=== PATIENT | female | born 1945 | race Caucasian/White ===

== ENCOUNTER → 2020-09-24 13:53 | Outpatient (BNVA) | payer MEDICARE, SELFPAY | PROVIDERS: PCP Internal Medicine; Referring Provider Internal Medicine; Visit Provider Internal Medicine Endocrinology, Diabetes & Metabolism | DX: Z13.89 Encounter for screening for other disorder (principal) | CPT/HCPCS: 99212 ==

== ENCOUNTER 2021-01-03 14:57 | Outpatient (REF) | payer MEDICARE, SELFPAY ==
[2021-01-03 16:23] LABS: MANUAL DIFF FLAG NO
[2021-01-03 16:31] LABS: Basophils Percent Auto 0.4 % (0-2); Eosinophils Absolute Auto 0.2 X10*3/uL (0.0-0.4); Hematocrit 36.2 % (37-47); Hemoglobin 11.6 g/dl (12.0-16.0); Imm Gran Abs Auto 0.04 X10*3/uL (0.00-0.03); Imm Gran Pct Auto 0.6 % (0.0-0.4); Lymphocytes Absolute Auto 1.7 X10*3/uL (1.2-4.9); Lymphocytes Percent Auto 23.3 % (20-40); Mean Corpuscular Hemoglobin 29.9 pg (27.0-33.0); Mean Corpuscular Volume 93.3 fL (80-98); Mean Platelet Volume 10.4 fL (9.4-12.3); Monocytes Absolute Auto 0.6 X10*3/uL (0.1-1.2); Neutrophils Absolute Auto 4.6 X10*3/uL (2.0-8.3); Neutrophils Percent Auto 64.7 % (45-73); Platelet Count 250 X10*3/uL (160-400); Red Blood Count 3.88 X10*6/uL (4.20-5.50); Red Cell Distribution Width 13.9 % (11.0-16.0); White Blood Count 7.1 X10*3/uL (4.8-10.8)
[2021-01-03 16:48] LABS: Anion Gap 12 (12-20); Blood Urea Nitrogen 67 mg/dL (9-16); Calcium 8.9 mg/dL (8.4-10.2); Carbon Dioxide 34 mmol/L (22-29); Chloride 93 mmol/L (96-108); Estimated Glomerular Filt Rate 23; Glucose Random 180 mg/dL (60-115); Potassium 5.1 mmol/L (3.3-5.1); Sodium 134 mmol/L (135-145)
[2021-01-03 17:01] LABS: Erythrocyte Sedimentation Rate 78 MM/HR (0-20)
[2021-01-04 21:18] LABS: Immunoglobulin G Subclass 1 630 mg/dL (382-929); Immunoglobulin G Subclass 2 664 mg/dL (241-700); Immunoglobulin G Subclass 3 >220 mg/dL (22-178); Immunoglobulin G Subclass 4 80.6 mg/dL (4-86); Immunoglobulin G Total 1537 mg/dL (600-1540)
[2021-01-05 07:50] LABS: SARS COV2 IgG Negative (Negative)
== END 2021-01-03 14:58 | disposition home or self-care (01) ==
LOC: HO.LAB 14:57
PROVIDERS: Absent Provider Internal Medicine Endocrinology, Diabetes & Metabolism; Visit Provider Hospitalist
DX: J44.0 Chronic obstructive pulmonary disease with (acute) lower respiratory infection (principal); J22 Unspecified acute lower respiratory infection; Z01.84 Encounter for antibody response examination
CPT/HCPCS: 36415; 80048; 82784; 85025; 85652; 86769; 99212

== ENCOUNTER 2021-01-09 11:19 | Outpatient (REF) | payer MEDICARE, SELFPAY ==
[2021-01-09 13:03] LABS: Hematocrit 38.6 % (37-47); Hemoglobin 12.5 g/dl (12.0-16.0); Mean Corpuscular HGB Conc 32.4 g/dl (31.0-35.0); Mean Corpuscular Volume 92.6 fL (80-98); Mean Platelet Volume 10.5 fL (9.4-12.3); Platelet Count 327 X10*3/uL (160-400); Red Blood Count 4.17 X10*6/uL (4.20-5.50); Red Cell Distribution Width 13.9 % (11.0-16.0); White Blood Count 10.6 X10*3/uL (4.8-10.8)
[2021-01-09 13:11] LABS: Estimated Average Glucose 177 mg/dL; Hemoglobin A1c % 7.8 %
[2021-01-09 14:10] LABS: Alanine Aminotransferase 14 U/L (0-31); Alkaline Phosphatase 73 U/L (39-117); Anion Gap 17 (12-20); Aspartate Amino Transferase 12 U/L (5-31); Bilirubin Total 0.4 mg/dL (0.0-1.0); Blood Urea Nitrogen 90 mg/dL (9-16); Calcium 9.2 mg/dL (8.4-10.2); Carbon Dioxide 31 mmol/L (22-29); Chloride 92 mmol/L (96-108); Cholesterol 207 mg/dL; Estimated Glomerular Filt Rate 26; Glucose Fasting 131 mg/dL (60-99); HDL Cholesterol 63 mg/dL; LDL Cholesterol Calculated 109 mg/dl; Potassium 4.5 mmol/L (3.3-5.1); Sodium 135 mmol/L (135-145); Total Protein 7.8 g/dL (6.5-8.0); Triglycerides 175 mg/dL
[2021-01-10 05:52] LABS: LDL Cholesterol Direct 110 mg/dL (<100)
[2021-01-10 17:30] LABS: Vitamin B12 322 pg/mL (200-900)
== END 2021-01-09 11:20 | disposition home or self-care (01) ==
LOC: HO.LAB 11:19
PROVIDERS: PCP Internal Medicine Geriatric Medicine; Visit Provider Internal Medicine Endocrinology, Diabetes & Metabolism
DX: E11.65 Type 2 diabetes mellitus with hyperglycemia (principal); E11.21 Type 2 diabetes mellitus with diabetic nephropathy; E11.40 Type 2 diabetes mellitus with diabetic neuropathy, unspecified; I10 Essential (primary) hypertension; E78.5 Hyperlipidemia, unspecified; E66.01 Morbid (severe) obesity due to excess calories; I50.9 Heart failure, unspecified; E55.9 Vitamin D deficiency, unspecified; Z88.5 Allergy status to narcotic agent; Z88.0 Allergy status to penicillin; Z88.8 Allergy status to other drugs, medicaments and biological substances; Z79.82 Long term (current) use of aspirin; Z79.84 Long term (current) use of oral hypoglycemic drugs; Z79.899 Other long term (current) drug therapy; Z79.52 Long term (current) use of systemic steroids
CPT/HCPCS: 36415; 80053; 80061; 82607; 82947; 83036; 83721; 85027; 99212

== ENCOUNTER → 2021-02-19 15:23 | Outpatient (BNVA) | payer MEDICARE, SELFPAY | PROVIDERS: PCP Internal Medicine Geriatric Medicine; Visit Provider Hospitalist | DX: J44.0 Chronic obstructive pulmonary disease with (acute) lower respiratory infection (principal); M54.9 Dorsalgia, unspecified; G47.33 Obstructive sleep apnea (adult) (pediatric); I50.9 Heart failure, unspecified; L89.156 Pressure-induced deep tissue damage of sacral region; Z99.89 Dependence on other enabling machines and devices | CPT/HCPCS: 99212 ==

== ENCOUNTER 2021-03-12 12:45 | Outpatient (RCR) | payer MEDICARE, SELFPAY | END 2021-07-31 15:45 | disposition home or self-care (01) | LOC: HO.WCC 12:45 | PROVIDERS: PCP Internal Medicine Geriatric Medicine; Visit Provider Physician Assistant | DX: E11.622 Type 2 diabetes mellitus with other skin ulcer (principal); L89.153 Pressure ulcer of sacral region, stage 3; E11.65 Type 2 diabetes mellitus with hyperglycemia; E66.9 Obesity, unspecified; Z79.4 Long term (current) use of insulin; Z79.82 Long term (current) use of aspirin; Z79.899 Other long term (current) drug therapy | CPT/HCPCS: 11042; 99212 ==

== ENCOUNTER → 2021-08-13 13:50 | Outpatient (BNVA) | payer MEDICARE, SELFPAY | PROVIDERS: Visit Provider Hospitalist | DX: J44.0 Chronic obstructive pulmonary disease with (acute) lower respiratory infection (principal); I50.9 Heart failure, unspecified; G47.33 Obstructive sleep apnea (adult) (pediatric); L89.156 Pressure-induced deep tissue damage of sacral region; Z99.89 Dependence on other enabling machines and devices | CPT/HCPCS: 99212 ==

== ENCOUNTER → 2021-11-21 14:14 | Outpatient (BNVA) | payer MEDICARE, SELFPAY | PROVIDERS: PCP Internal Medicine Geriatric Medicine; Visit Provider Hospitalist | DX: J44.0 Chronic obstructive pulmonary disease with (acute) lower respiratory infection (principal); G47.33 Obstructive sleep apnea (adult) (pediatric); I50.9 Heart failure, unspecified; Z99.89 Dependence on other enabling machines and devices | CPT/HCPCS: 99212 ==

== ENCOUNTER → 2022-01-23 14:58 | Outpatient (BNVA) | payer MEDICARE, SELFPAY | PROVIDERS: PCP Internal Medicine Geriatric Medicine; Visit Provider Internal Medicine Endocrinology, Diabetes & Metabolism | DX: E11.65 Type 2 diabetes mellitus with hyperglycemia (principal) | CPT/HCPCS: 82947; 83036; 99212 ==

== ENCOUNTER → 2023-04-01 14:22 | Outpatient (BNVA) | payer MEDICARE, SELFPAY | PROVIDERS: Visit Provider Internal Medicine Endocrinology, Diabetes & Metabolism | DX: E11.65 Type 2 diabetes mellitus with hyperglycemia (principal); E11.21 Type 2 diabetes mellitus with diabetic nephropathy; E11.40 Type 2 diabetes mellitus with diabetic neuropathy, unspecified; E11.22 Type 2 diabetes mellitus with diabetic chronic kidney disease; I12.9 Hypertensive chronic kidney disease with stage 1 through stage 4 chronic kidney disease, or unspecified chronic kidney disease; N18.4 Chronic kidney disease, stage 4 (severe); Z79.4 Long term (current) use of insulin; Z79.82 Long term (current) use of aspirin; Z79.52 Long term (current) use of systemic steroids | CPT/HCPCS: 82947; 83036; 99212 ==

== ENCOUNTER 2023-08-05 14:31 | Outpatient (AMB) | payer MEDICARE, SELFPAY ==
--- NOTE | 2023-08-05 14:32 | MHC.OFFVIS ---
Intake Vital Signs 08/05/23 14:33 BP 136/68 Blood Pressure Location Lt brachial Position Sitting Pulse 67 Pulse Source Pulse Oximeter Intake Visit Reasons: DM confirmed Intake Note: Patient present today to follow up on Type 2 Diabetes Mellitus. Patient receives DME supplies through: Pharmacy Last Diabetic Eye exam: Over a year Last Podiatry Visit: None Random Glucose: 109 mg/dl HgA1C: 5.9% [employer] Required: Yes [employer] Language: Polish Accompanied by: Son Allergies acetaminophen [Percocet] Allergy (Severe, Verified 08/05/23 14:39) Rash/Hives gabapentin [From NEURONTIN] Allergy (Severe, Verified 08/05/23 14:39) patient became 'very red' per family oxycodone Allergy (Severe, Verified 08/05/23 14:39) Hives Penicillins [PENICILLINS] Allergy (Severe, Verified 08/05/23 14:39) Rash quetiapine [From SEROQUEL] Allergy (Severe, Verified 08/05/23 14:39) HALLUCINATIONS Percocet Allergy (Severe, Uncoded 04/01/23 14:33) hives HPI HPI Comments History of Present Illness Details 77 yo female, , she is here today for follow-up 1 for diabetes management She reports she is doing well. . John download shows she is using the sensor 25% of the time average glucose is 144 with variability of 23.9%. 84% range with 60% hyperglycemia and no hypoglycemia She has DM type 2 diagnosed 1994. She has PMH of asthma, depression, Sandhu's palsy, encephalopathy , who is wheelchair bound, rheumatoid arthritis, hyperlipidemia, hypertension, morbid obesity. She has Nephropathy and retinopathy or macrovascular disease.she sees nephrology She is Currently on Tresiba 40 - units,Humalog 6 before meals, Ozempic 0.25 mg Qwkly off for sweveral mos due to not getting it from pharmacy hypoglycemia No Last ophthalmology evaluation: needs to make appt . She has no retinopathy. She denies any shortness of breath Laboratory Tests 01/03/21 01/09/21 01/09/21 16:12 11:45 11:45 Hgb 12.5 Hct 38.6 BUN 67 H Creatinine 2.09 H Random Glucose 180 H Estimat Average Gl ucose 177 Hemoglobin A1c % 7.8 Calcium 8.9 Laboratory Tests 06/09/0306/13/20 01/03/21 00:00 12:46 16:12 Hgb 11.6 L Hct 36.2 L Sodium Potassium Carbon Dioxide BUN Creatinine Estimated GFR Random Glucose Hgb A1c Fingerstic k 7.3 Calcium Microalb/Creat Rat io 89.1 01/03/21 16:12 Hgb Hct Sodium 134 L Potassium 5.1 Carbon Dioxide 34 H BUN 67 H Creatinine 2.09 H Estimated GFR 23 Random Glucose 180 H Hgb A1c Fingerstic k Calcium 8.9 Microalb/Creat Rat io Since diet was changed to dialysis diet, patient's son states patient has not required insulin or Ozempic. Blood sugars have been ranging in 80s to low 100s. She did receive a transfusion in the hospital few weeks ago [facility] Medical History (Updated 02/20/21 @ 08:27 by Santos Dowd MD) JOSÉ MIGUEL on CPAP Decubital ulcer Back pain Hypovitaminosis D COPD (chronic obstructive pulmonary disease) CHF (congestive heart failure) Depression Morbid obesity Dyslipidemia Hypertension Diabetic neuropathy associated with type 2 diabetes mellitus Diabetic nephropathy associated with type 2 diabetes mellitus [facility] (current) use of insulin Diabetes type 2, uncontrolled Surgical History Hx of cardiac cath Hx of cataract removal with insertion of prosthetic lens History of total abdominal hysterectomy and bilateral salpingo-oophorectomy Hx of tonsillectomy Family History Father Diabetes Mother CVA (cerebral vascular accident) Social History Alcohol intake: current Alcohol intake frequency: does not drink Patient Tobacco Use Status: Never used Tobacco Physical Exam Vital Signs: Last Vital Signs Pulse 67 08/05/23 14:33 BP 136/68 08/05/23 14:33 Absence of Cushingoid features. Absence of acromegalic features. Neck exam reveals nl size thyroid about 15 gms. No thyroid nodules palpable. No carotid bruits present. Lungs revealed diffuse wheezes throughout. Heart S1 S2, Reg R/R. No M/R/ G. Skin exam reveals absence of vitiligo or acanthosis nigricans. Abdominal exam reveals Soft NT/ND with NA BS. No organomegaly present. Neck Other: . Extrem Other: Visual exam of foot performed. No ulcerations or open lesions. No onchomycosis, no callouses.Pulses 2 + distally Sensation intact to monofilament exam. Vibratory sensation sensed is decreased with 128 Hz tuning fork. There is 3+ edema present from the calf down would Results AMB Hemoglobin A1c AMB Hemoglobin A1c 5.9 % Last Edit by Natividad Bates on 08/05/23 15:01 Results Reviewed Results Reviewed: 08/05/23 14:48 Glucose, Whole Blood Routine Laboratory Last Values Glucose (Clinic) 109 mg/dL (60-115) 08/05/23 14:48 Hgb A1c (Clinic) 5.9 % (4.0-6.0) 08/05/23 14:59 Assessment & Plan Assessment & Plan (1) Diabetes type 2, uncontrolled: Code(s): E11.65 - Type 2 diabetes mellitus with hyperglycemia Plan: This is a 76-year-old female with a history of type 2 diabetes being treated with basal-bolus insulin not taking a with excelent glycemic control and known microvascular complications namely CKD stage 4. Plan is to hold off on giving insulin unless point care>200 and can use correction Humalog. If point care consistently above 200, told son to administer 20 units of Tresiba. At this point, patient can follow up with primary care provider. Goal hemoglobin A1c should be <8%. She can return back to endocrinology as needed Orders: Orders AMB Hemoglobin A1c Today E11.65 - Type 2 diabetes mellitus with hyperglycemia Medications: Refilled blood sugar diagnostic (FreeStyle Lite Strips) 3 times a day 300 ea 2RF E11.65 - Type 2 diabetes mellitus with hyperglycemia Coding Level of Care Code Est Pt Level 4 (44215) Diagnoses Diabetes type 2, uncontrolled E11.65
[2023-08-05 14:33] VITALS: BP 136/68; PULSE 67
[2023-08-05 14:53] LABS: Glucose, Whole Blood 109 mg/dL (60-115)
== END 2023-08-05 15:08 | disposition home or self-care (01) ==
PROVIDERS: PCP Registered Nurse; Referring Provider Registered Nurse; Visit Provider Internal Medicine Endocrinology, Diabetes & Metabolism
DX: E11.65 Type 2 diabetes mellitus with hyperglycemia (principal)
CPT/HCPCS: 99214

== ENCOUNTER → 2023-08-05 14:31 | Outpatient (BNVA) | payer MEDICARE, SELFPAY | PROVIDERS: Visit Provider Internal Medicine Endocrinology, Diabetes & Metabolism | DX: E11.65 Type 2 diabetes mellitus with hyperglycemia (principal) | CPT/HCPCS: 82947; 83036; 99212 ==